=== PATIENT | female | born 1960 | race African-American/Black ===

== ENCOUNTER 2021-02-03 10:55 | Inpatient (IN) ==
[2021-02-03] MEDS ORDERED: SODIUM CHLORIDE 0.9% 1,000 ML IV STA (11:24)
[2021-02-03] MEDS ORDERED: ONDANSETRON 4 MG/2 ML VIAL IV STA (11:24)
[2021-02-03] MEDS ORDERED: HYDROmorphone 2 MG/1 ML VIAL IV STA (11:24)
[2021-02-03 11:50] LABS: Basophils % 0.1 % (0.0-0.8); Hematocrit 25.3 VOL% (35.7-47.0); Hemoglobin 7.5 GM/DL (12.0-16.0); Immature Granulocytes % 1.9 %; Immature Granulocytes Absolute 0.43 #; Lymphocytes # 1.3 10*3/uL (1.4-4.0); Lymphocytes % 5.6 % (21.3-54.2); Mean Corpuscular HGB Conc 29.6 GM/DL (32-36); Mean Corpuscular Volume 77.8 FL (87-102); Mean Platelet Volume 9.9 FL (9.6-12.0); Monocytes % 4.7 % (1.7-12.7); NRBC # 0.06 10*3/uL; Neutrophils % 87.7 % (38.7-73.9); Platelet Count 352 T/CUMM (130-400); Red Blood Count 3.25 MC/CUMM (3.8-5.5); White Blood Count 22.9 T/CUMM (4-12)
[2021-02-03 12:07] LABS: Albumin 2.3 G/DL (3.4-5.0); Bilirubin,Total 0.5 MG/DL (0.2-1.0); Calcium 8.9 MG/DL (8.5-10.1); Osmolality,Calculated 300.4 MOS/KG (273-304); Total Protein 6.9 G/DL (6.4-8.2)
[2021-02-03 12:11] LABS: Potassium 6.9 MMOL/L (3.5-5.1)
[2021-02-03 12:15] LABS: Amorphous Crystals,Urine Occasional /HPF (Few); Bilirubin,Urine Negative (Negative); Blood, Urine Negative (Negative); Glucose,Urine (UA) Negative (Negative); Ketones,Urine Negative (Negative); Mucus,Urine Occasional /LPF (Occasional); Nitrite,Urine Negative (Negative); Protein,Urine Negative; RBC,Urine 1 /HPF (0-4); Squamous Epithelial Cell,Urine Occasional /HPF (0-10); Urine Appearance CLEAR (Clear); Urine Color Yellow (Yellow); Urine Specific Gravity 1.014 (1.001-1.035); Urine Urobilinogen < 2.0 EU/DL (0.2-1.0); WBC,Urine 1 /HPF (0-6)
[2021-02-03 12:45] LABS: Lymphocytes 4 % (20-55); Segmented Neutrophils 94 % (50-85); Target Cells Few; Total Cells Counted 100
[2021-02-03 12:46] LABS: Hypochromasia 2+; Microcytosis 2+; Platelet Estimate Increased; Tear Drop Cells Few
[2021-02-03] MEDS ORDERED: DEXTROSE 50% 25 GM/50 ML VIAL IV STA (13:06)
[2021-02-03] MEDS ORDERED: SODIUM BICARBONATE 50 MEQ/50 ML VIAL IV STA (13:06)
[2021-02-03] MEDS ORDERED: INSULIN REGULAR 100 UNIT/ML IV STA (13:06)
[2021-02-03] MEDS ORDERED: DEXTROSE 50% 25 GM/50 ML VIAL IV PRN (15:12)
[2021-02-03] MEDS ORDERED: GLUCAGON 1 MG VIAL IM PRN (15:12)
[2021-02-03] MEDS ORDERED: SODIUM POLYSTYRENE SULFATE 15 GM/60 ML BOTTLE RECTAL ONE (15:20)
[2021-02-03] MEDS: ONDANSETRON 4 MG/2 ML VIAL IV PRN (17:15)
[2021-02-03] MEDS: SODIUM CHLORIDE 0.9% 1,000 ML IV SCH (18:28)
[2021-02-03] MEDS: PROMETHAZINE INJ 12.5 MG in SODIUM CHLORIDE 0.9% 50 ML IV PRN (18:28)
[2021-02-03] MEDS: PROMETHAZINE 25 MG/1 ML VIAL IM PRN (21:09)
[2021-02-03] MEDS: HEPARIN 5,000 UNIT/1 ML VIAL SUBCUT SCH (21:09)
[2021-02-03] MEDS: diphenhydrAMINE 50 MG/1 ML VIAL IV PRN (21:47)
[2021-02-04] MEDS ORDERED: PROCHLORPERAZINE 25 MG SUPP RECTAL ONE (02:01)
[2021-02-04] MEDS: SODIUM CHLORIDE 0.9% 1,000 ML IV SCH ×4 (02:15→22:45)
[2021-02-04] MEDS: PROMETHAZINE 25 MG/1 ML VIAL IM PRN ×3 (02:58→21:03)
[2021-02-04] MEDS ORDERED: LORazepam 2 MG/1 ML VIAL IV ONE (04:02)
[2021-02-04 06:19] LABS: Basophils % 0.2 % (0.0-0.8); Eosinophils % 0.1 % (0.00-10.9); Hematocrit 22.4 VOL% (35.7-47.0); Hemoglobin 6.9 GM/DL (12.0-16.0); Immature Granulocytes % 2.3 %; Immature Granulocytes Absolute 0.55 #; Lymphocytes # 1.1 10*3/uL (1.4-4.0); Lymphocytes % 4.8 % (21.3-54.2); Mean Corpuscular HGB Conc 30.8 GM/DL (32-36); Mean Corpuscular Volume 76.5 FL (87-102); Mean Platelet Volume 9.9 FL (9.6-12.0); Monocytes % 4.5 % (1.7-12.7); NRBC # 0.05 10*3/uL; Neutrophils % 88.1 % (38.7-73.9); Platelet Count 296 T/CUMM (130-400); Red Blood Count 2.93 MC/CUMM (3.8-5.5); Red Cell Distribution Width 21.1 % (9.3-17.3); White Blood Count 23.5 T/CUMM (4-12)
[2021-02-04 06:39] LABS: Hypochromasia 2+; Lymphocytes 4 % (20-55); Nucleated Red Blood Cells 1 (0-5); Platelet Estimate Adequate; Segmented Neutrophils 93 % (50-85); Total Cells Counted 100
[2021-02-04 06:41] LABS: Calcium 8.2 MG/DL (8.5-10.1); Osmolality,Calculated 313.4 MOS/KG (273-304)
[2021-02-04 06:51] LABS: Potassium 6.8 MMOL/L (3.5-5.1)
[2021-02-04] MEDS: PROMETHAZINE INJ 12.5 MG in SODIUM CHLORIDE 0.9% 50 ML IV PRN ×2 (08:48→15:35)
[2021-02-04] MEDS: HEPARIN 5,000 UNIT/1 ML VIAL SUBCUT SCH ×2 (09:37→21:03)
[2021-02-04] MEDS ORDERED: SODIUM POLYSTYRENE SULFATE 15 GM/60 ML BOTTLE RECTAL ONE (10:06)
[2021-02-05] MEDS: diphenhydrAMINE 50 MG/1 ML VIAL IV PRN (00:30)
[2021-02-05] MEDS: PROMETHAZINE INJ 12.5 MG in SODIUM CHLORIDE 0.9% 50 ML IV PRN (00:30)
[2021-02-05 05:25] LABS: Basophils % 0.1 % (0.0-0.8); Hematocrit 21.7 VOL% (35.7-47.0); Hemoglobin 6.5 GM/DL (12.0-16.0); Immature Granulocytes % 2.6 %; Lymphocytes # 1.7 10*3/uL (1.4-4.0); Lymphocytes % 7.1 % (21.3-54.2); Mean Corpuscular Volume 79.5 FL (87-102); Mean Platelet Volume 9.7 FL (9.6-12.0); NRBC # 0.14 10*3/uL; Neutrophils % 84.2 % (38.7-73.9); Platelet Count 282 T/CUMM (130-400); Red Blood Count 2.73 MC/CUMM (3.8-5.5); Red Cell Distribution Width 21.7 % (9.3-17.3); White Blood Count 23.4 T/CUMM (4-12)
[2021-02-05 05:49] LABS: Osmolality,Calculated 315.1 MOS/KG (273-304)
[2021-02-05 05:53] LABS: Band Neutrophils 1 % (0-10); Hypochromasia 2+; Lymphocytes 4 % (20-55); Nucleated Red Blood Cells 2 (0-5); Segmented Neutrophils 94 % (50-85); Total Cells Counted 100
[2021-02-05 05:54] LABS: Anisocytosis 1+; Microcytosis 1+; Polychromasia Slight; Target Cells Slight
[2021-02-05 05:55] LABS: Ovalocytes Slight; Platelet Estimate Normal
[2021-02-05 06:05] LABS: Potassium 6.6 MMOL/L (3.5-5.1)
[2021-02-05] MEDS: SODIUM CHLORIDE 0.9% 1,000 ML IV SCH (06:05)
[2021-02-05] MEDS: ONDANSETRON 4 MG/2 ML VIAL IV PRN (09:52)
[2021-02-05] MEDS: HEPARIN 5,000 UNIT/1 ML VIAL SUBCUT SCH ×2 (09:53→22:19)
[2021-02-05 13:10] LABS: INR 1.2; PT Patient Result 13.1 SECS (9.8-11.9); Partial Thromboplastin Time 22.3 SECS (23.9-33.8)
[2021-02-05] MEDS ORDERED: SODIUM BICARBONATE 50 MEQ/50 ML SYRINGE IV ONE ×2 (13:30→21:30)
[2021-02-05] MEDS ORDERED: TUBERCULIN SKIN TEST 0.1 ML SYRINGE INTRADERM ONE (14:00)
[2021-02-05] MEDS ORDERED: CLINDAMYCIN INJ 900 MG in PREMIX 1 EACH IV ONE (14:36)
[2021-02-05] MEDS: SODIUM BICARB INJ 100 MEQ in DEXTROSE 5% 1,000 ML IV SCH (22:19)
[2021-02-06] MEDS: SODIUM BICARB INJ 100 MEQ in DEXTROSE 5% 1,000 ML IV SCH ×3 (00:33→22:44)
[2021-02-06 05:16] LABS: Basophils % 0.1 % (0.0-0.8); Eosinophils % 0.1 % (0.00-10.9); Hematocrit 20.8 VOL% (35.7-47.0); Immature Granulocytes % 2.5 %; Immature Granulocytes Absolute 0.55 #; Lymphocytes # 1.6 10*3/uL (1.4-4.0); Lymphocytes % 7.3 % (21.3-54.2); Mean Corpuscular HGB Conc 29.3 GM/DL (32-36); Mean Corpuscular Volume 79.1 FL (87-102); Mean Platelet Volume 10.3 FL (9.6-12.0); Monocytes % 5.7 % (1.7-12.7); Neutrophils % 84.3 % (38.7-73.9); Platelet Count 282 T/CUMM (130-400); Red Blood Count 2.63 MC/CUMM (3.8-5.5); Red Cell Distribution Width 21.8 % (9.3-17.3); White Blood Count 21.7 T/CUMM (4-12)
[2021-02-06 05:32] LABS: Calcium 8.3 MG/DL (8.5-10.1); Osmolality,Calculated 319.1 MOS/KG (273-304); Potassium 5.9 MMOL/L (3.5-5.1)
[2021-02-06 05:55] LABS: Hemoglobin 6.1 GM/DL (12.0-16.0)
[2021-02-06] MEDS ORDERED: CLINDAMYCIN INJ 900 MG in PREMIX 1 EACH IV ONE (06:00)
[2021-02-06 06:37] LABS: Hypochromasia 2+; Lymphocytes 6 % (20-55); Nucleated Red Blood Cells 2 (0-5); Platelet Estimate Adequate; Segmented Neutrophils 88 % (50-85); Total Cells Counted 100
[2021-02-06 06:42] LABS: Macrocytosis Slight; Polychromasia Slight; Target Cells Few
[2021-02-06] MEDS ORDERED: SODIUM CHLORIDE 0.9% 1,000 ML IV PRN (07:08)
[2021-02-06] MEDS: ONDANSETRON 4 MG/2 ML VIAL IV PRN (07:36)
[2021-02-06] MEDS: SODIUM CHLORIDE 0.9% 1,000 ML IV SCH (08:33)
[2021-02-06] MEDS: diphenhydrAMINE 50 MG/1 ML VIAL IV PRN (09:24)
[2021-02-06] MEDS ORDERED: HALOPERIDOL 5 MG/ML AMP IM ONE ×2 (11:13→18:49)
[2021-02-06] MEDS ORDERED: BUPIVACAINE MPF 0.25% 30 ML VIAL ONE (12:09)
[2021-02-06] MEDS ORDERED: LIDOCAINE 1%/EPI INJ 20 ML VIAL ONE (12:10)
[2021-02-06] MEDS ORDERED: ONDANSETRON 4 MG/2 ML VIAL ONE (12:15)
[2021-02-06] MEDS ORDERED: DEXAMETHASONE 4 MG/1 ML VIAL ONE (12:15)
[2021-02-06] MEDS ORDERED: MIDAZOLAM 2 MG/2 ML VIAL ONE (12:15)
[2021-02-06] MEDS ORDERED: ONDANSETRON 4 MG/2 ML VIAL IV PRN (13:26)
[2021-02-06] MEDS: CHLORHEXIDINE 0.12% ORAL RINSE 60 ML BOTTLE SWISH/SPIT SCH ×2 (16:03→22:00)
[2021-02-06] MEDS: HEPARIN 5,000 UNIT/1 ML VIAL SUBCUT SCH ×2 (16:03→20:44)
[2021-02-06 18:16] LABS: Hepatitis B Core IgM Quant 1.43 Index; Hepatitis B Surface Ag Quant < 0.10 Index; Hepatitis B Surface Ag Result Non-Reactive (NonReactive); Hepatitis C Virus Ab Quant 0.07 Index; Hepatitis C Virus Ab Result Non-Reactive (NonReactive)
[2021-02-07] MEDS: ONDANSETRON 4 MG/2 ML VIAL IV PRN ×3 (01:45→08:47)
[2021-02-07] MEDS: PROMETHAZINE 25 MG/1 ML VIAL IM PRN (04:12)
[2021-02-07] MEDS: diphenhydrAMINE 50 MG/1 ML VIAL IV PRN ×2 (07:54→16:45)
[2021-02-07] MEDS: CHLORHEXIDINE 0.12% ORAL RINSE 60 ML BOTTLE SWISH/SPIT SCH ×2 (08:24→20:42)
[2021-02-07] MEDS: HEPARIN 5,000 UNIT/1 ML VIAL SUBCUT SCH ×2 (08:24→20:42)
[2021-02-07] MEDS: SODIUM BICARB INJ 100 MEQ in DEXTROSE 5% 1,000 ML IV SCH (09:13)
[2021-02-07] MEDS: PROMETHAZINE INJ 12.5 MG in SODIUM CHLORIDE 0.9% 50 ML IV PRN (11:05)
[2021-02-07] MEDS: HALOPERIDOL 5 MG/ML AMP IV PRN (12:40)
[2021-02-07] MEDS ORDERED: ALUM/MAG/SIMETH/LIDO VISC 1:1 30 ML BOTTLE PO ONE (17:56)
[2021-02-07] MEDS: HYDROmorphone 2 MG/1 ML VIAL IV PRN (18:39)
[2021-02-08] MEDS: PROMETHAZINE INJ 12.5 MG in SODIUM CHLORIDE 0.9% 50 ML IV PRN
[2021-02-08] MEDS: HYDROmorphone 2 MG/1 ML VIAL IV PRN ×2 (03:45→17:43)
[2021-02-08 06:17] LABS: Basophils % 0.1 % (0.0-0.8); Eosinophils % 0.1 % (0.00-10.9); Hematocrit 24.8 VOL% (35.7-47.0); Hemoglobin 7.5 GM/DL (12.0-16.0); Immature Granulocytes % 2.8 %; Immature Granulocytes Absolute 0.66 #; Lymphocytes # 1.8 10*3/uL (1.4-4.0); Lymphocytes % 7.8 % (21.3-54.2); Mean Corpuscular HGB Conc 30.2 GM/DL (32-36); Mean Platelet Volume 10.1 FL (9.6-12.0); Monocytes % 5.3 % (1.7-12.7); NRBC # 0.39 10*3/uL; Neutrophils % 83.9 % (38.7-73.9); Platelet Count 220 T/CUMM (130-400); Red Blood Count 3.06 MC/CUMM (3.8-5.5); Red Cell Distribution Width 22.3 % (9.3-17.3); White Blood Count 23.6 T/CUMM (4-12)
[2021-02-08 06:35] LABS: Bilirubin,Total 0.7 MG/DL (0.2-1.0); Calcium 8.3 MG/DL (8.5-10.1); Potassium 5.3 MMOL/L (3.5-5.1); Total Protein 5.9 G/DL (6.4-8.2)
[2021-02-08 06:40] LABS: Hypochromasia 1+; Lymphocytes 9 % (20-55); Platelet Estimate Adequate; Segmented Neutrophils 86 % (50-85); Total Cells Counted 100
[2021-02-08 06:41] LABS: Macrocytosis Slight; Polychromasia Slight
[2021-02-08] MEDS: CHLORHEXIDINE 0.12% ORAL RINSE 60 ML BOTTLE SWISH/SPIT SCH ×2 (08:45→21:55)
[2021-02-08] MEDS: HEPARIN 5,000 UNIT/1 ML VIAL SUBCUT SCH ×2 (08:45→21:56)
[2021-02-08] MEDS: diphenhydrAMINE 50 MG/1 ML VIAL IV PRN ×2 (08:50→21:56)
[2021-02-08] MEDS ORDERED: TUBERCULIN SKIN TEST 0.1 ML SYRINGE INTRADERM ONE (09:43)
[2021-02-08] MEDS: PROMETHAZINE 25 MG/1 ML VIAL IM PRN (10:40)
[2021-02-08] MEDS ORDERED: HEPARIN 10,000 UNIT/10 ML VIAL IV SCH (12:15)
[2021-02-08] MEDS: DOXYCYCLINE HYCLATE INJ 100 MG in SODIUM CHLORIDE 0.9% 100 ML IV SCH (13:20)
[2021-02-08] MEDS: HALOPERIDOL 5 MG/ML AMP IV PRN (13:24)
[2021-02-08] MEDS ORDERED: VANCOMYCIN INJ 1,000 MG in SODIUM CHLORIDE 0.9% 250 ML IV SCH (13:30)
[2021-02-08] MEDS ORDERED: LORazepam 2 MG/1 ML VIAL IV PRN (17:05)
[2021-02-08] MEDS ORDERED: ALPRAZolam 0.5 MG TABLET PO PRN (17:06)
[2021-02-08] MEDS ORDERED: fentaNYL 25 MCG/HR PATCH TRANSDERM SCH (17:30)
[2021-02-08] MEDS ORDERED: VANCOMYCIN INJ 2,500 MG in SODIUM CHLORIDE 0.9% 500 ML IV ONE (18:00)
[2021-02-08] MEDS: ONDANSETRON 4 MG/2 ML VIAL IV PRN (21:55)
[2021-02-09] MEDS: DOXYCYCLINE HYCLATE INJ 100 MG in SODIUM CHLORIDE 0.9% 100 ML IV SCH ×2 (01:55→13:45)
[2021-02-09] MEDS: HYDROmorphone 2 MG/1 ML VIAL IV PRN ×3 (01:55→21:46)
[2021-02-09] MEDS: PROMETHAZINE 25 MG/1 ML VIAL IM PRN ×2 (01:56→08:54)
[2021-02-09 07:02] LABS: Basophils % 0.2 % (0.0-0.8); Eosinophils # 0.1 10*3/uL (0.0-0.87); Eosinophils % 0.5 % (0.00-10.9); Hematocrit 25.6 VOL% (35.7-47.0); Hemoglobin 7.2 GM/DL (12.0-16.0); Immature Granulocytes % 3.9 %; Immature Granulocytes Absolute 0.93 #; Lymphocytes # 2.2 10*3/uL (1.4-4.0); Lymphocytes % 9.3 % (21.3-54.2); Mean Corpuscular HGB Conc 28.1 GM/DL (32-36); Mean Corpuscular Volume 84.5 FL (87-102); NRBC # 0.54 10*3/uL; Neutrophils % 80.1 % (38.7-73.9); Platelet Count 225 T/CUMM (130-400); Red Blood Count 3.03 MC/CUMM (3.8-5.5); White Blood Count 23.9 T/CUMM (4-12)
[2021-02-09 07:25] LABS: Anisocytosis 2+; Band Neutrophils 3 % (0-10); Eosinophils 3 % (0-10); Lymphocytes 9 % (20-55); Macrocytosis 1+; Nucleated Red Blood Cells 4 (0-5); Platelet Estimate Normal; Segmented Neutrophils 82 % (50-85); Smudge Cells Few; Target Cells Few; Total Cells Counted 100
[2021-02-09 07:26] LABS: Polychromasia Slight
[2021-02-09] MEDS: HALOPERIDOL 5 MG/ML AMP IV PRN (07:26)
[2021-02-09 07:30] LABS: Calcium 7.9 MG/DL (8.5-10.1); Osmolality,Calculated 286.8 MOS/KG (273-304); Potassium 4.7 MMOL/L (3.5-5.1)
[2021-02-09] MEDS: HEPARIN 5,000 UNIT/1 ML VIAL SUBCUT SCH ×2 (08:53→21:46)
[2021-02-09] MEDS: CHLORHEXIDINE 0.12% ORAL RINSE 60 ML BOTTLE SWISH/SPIT SCH ×2 (10:36→21:48)
[2021-02-09] MEDS: PROMETHAZINE INJ 12.5 MG in SODIUM CHLORIDE 0.9% 50 ML IV PRN (14:54)
[2021-02-09] MEDS: metroNIDAZOLE INJ 500 MG in PREMIX 1 EACH IV SCH ×2 (15:41→21:47)
[2021-02-09] MEDS ORDERED: VANCOMYCIN INJ 1,000 MG in SODIUM CHLORIDE 0.9% 250 ML IV ONE (17:00)
[2021-02-09] MEDS: ONDANSETRON 4 MG/2 ML VIAL IV PRN (21:45)
[2021-02-10] MEDS: DOXYCYCLINE HYCLATE INJ 100 MG in SODIUM CHLORIDE 0.9% 100 ML IV SCH ×2 (01:12→12:00)
[2021-02-10] MEDS: PROMETHAZINE 25 MG/1 ML VIAL IM PRN (01:13)
[2021-02-10] MEDS: HALOPERIDOL 5 MG/ML AMP IV PRN (03:14)
[2021-02-10] MEDS: HYDROmorphone 2 MG/1 ML VIAL IV PRN ×3 (04:51→17:19)
[2021-02-10] MEDS: metroNIDAZOLE INJ 500 MG in PREMIX 1 EACH IV SCH ×3 (06:11→21:01)
[2021-02-10] MEDS: HEPARIN 5,000 UNIT/1 ML VIAL SUBCUT SCH ×2 (08:14→20:34)
[2021-02-10] MEDS: CHLORHEXIDINE 0.12% ORAL RINSE 60 ML BOTTLE SWISH/SPIT SCH ×2 (08:16→20:34)
[2021-02-10] MEDS: PROMETHAZINE INJ 12.5 MG in SODIUM CHLORIDE 0.9% 50 ML IV PRN (09:25)
[2021-02-10] MEDS ORDERED: VANCOMYCIN INJ 1,000 MG in SODIUM CHLORIDE 0.9% 250 ML IV PRN (18:00)
[2021-02-10] MEDS: MENTHOL/ZINC OXIDE OINT 71 GM JAR TOP SCH ×2 (18:25→20:34)
[2021-02-11] MEDS: DOXYCYCLINE HYCLATE INJ 100 MG in SODIUM CHLORIDE 0.9% 100 ML IV SCH (00:13)
[2021-02-11] MEDS: ONDANSETRON 4 MG/2 ML VIAL IV PRN (00:32)
[2021-02-11 04:25] VITALS: BP 98/57
== END 2021-02-11 06:10 | disposition expired | DRG 754 ==
LOC: EDUNIT# → EDBD → N.ED 10:55 → N.EDINP 15:12 → SUATTDRO 15:12 → N.EDINP 16:55 → N.4E 17:14
PROVIDERS: ADMIT Internal Medicine Geriatric Medicine; ATTEND Internal Medicine